=== PATIENT | female | born 1950 | race Caucasian/White ===

== ENCOUNTER 2018-06-26 10:55 | Emergency (ER) | payer MEDICARE ==
[~2018-06-26] VITALS: Ht 165.1 cm; Wt 90.7 kg
--- NOTE | 2018-06-26 12:44 | Diagnostic Imaging Report ---
FINGER RT - HOPD - 3 views HISTORY: Pain. Pain at the second digit between the interphalangeal and DIP joints when touching or grabbing everything for last 2 weeks. COMPARISON: None available. FINDINGS: Bones: No acute displaced fracture. Osseous alignment is within normal limits. Joints: Mild degenerative changes with osteophytosis in the DIP and PIP joint of second digit. Soft tissues: The soft tissues appear unremarkable. IMPRESSION: Mild degenerative changes in the second digit. Otherwise unremarkable right second finger. Signed by: Dr. Ovidio Arriola M.D. on 06/26/2018 12:41 PM
[2018-06-26 13:42] VITALS: BP 150/70
== END 2018-06-26 13:46 | disposition home or self-care (01) ==
LOC: FSED 10:55
DX: M19.041 Primary osteoarthritis, right hand (principal); G72.9 Myopathy, unspecified
CPT/HCPCS: 99283